=== PATIENT | female | born 1965 | race Caucasian/White ===

== ENCOUNTER → 2017-04-15 | Outpatient (CLI) | payer OTHER ==
[~2017-04-15] MED LIST: MOTRIN 100100 MG/5 M; MOTRIN 400MG.400 MG OR; PREMARIN 25 MG OR; SYNTHROID 0.0.075 MG PO; VICODIN 5/500 T1 TAB PO; ZYRTEC 10MG TAB10 MG PO
== END ==
LOC: LAB 18:07
DX: N39.0 Urinary tract infection, site not specified (principal)